=== PATIENT | male | born 1955 | race Caucasian/White ===

== ENCOUNTER 2020-11-04 13:56 | Emergency (ER) | payer MEDICARE, BC ==
[2020-11-04] MEDS ORDERED: HYDROmorphone 1 MG/ML Syringe IVPUSH ONE (14:44)
[2020-11-04] MEDS ORDERED: Metoclopramide 10 MG/2 ML SDV IVPUSH ONE (14:44)
[2020-11-04] MEDS ORDERED: Dextrose 5%-0.9% NaCl 1,000 ML IV SCH (14:45)
--- NOTE | 2020-11-04 14:49 | EDM.PDOC ---
ED HPI GENERAL MEDICAL PROBLEM - General Chief Complaint: Back Pain or Injury Stated Complaint: BACK INJURY Time Seen by Provider: 11/04/20 14:36 Source of Information: Reports: Patient History Limitations: Reports: No Limitations - History of Present Illness INITIAL COMMENTS - FREE TEXT/NARRATIVE: 65-year-old male presents to the ED for evaluation of primarily mid and lower back pain. He states he was hiking out in [place] and decided to jump from a rock to another rock and missed his mynor. He twisted in mid air and landed hard on the rock that he was going to jump on striking the back of his head on the rock. States he was dazed and confused for short period of time but did not lose consciousness. Does have a headache now. No nausea or vomiting. Pain mid cervical spine. Pain lower thoracic spine and upper lumbar spine. Pain posterior lateral lower ribs. Plan CT head , CT cervical spine, CT thoracic spine, CT lumbar spine. CT chest without contrast. IV fluids will be D5 normal saline at open. He will be given Dilaudid 1 mg IV with Reglan 10 mg IV. Onset: Today, Sudden Onset Date: 11/04/20 Onset Time: 12:00 Duration: Hour(s):, Constant, Getting Worse (Mid lower back pain and difficulty taking in a full deep breath.) Location: Reports: Head, Neck, Chest, Back (Lower thoracic spine upper lumbar spine) Quality: Reports: Ache, Throbbing Severity: Moderate Improves with: Reports: Rest Worsens with: Reports: Other (Patient states he is worse in terms of trying to get his breath when he lies flat.) Context: Reports: Trauma (Tripped and fell while jumping from rock to rock while hiking out in [place]. Landed hard on the rock he was going to jump on. Landed hard on his mid back knocking the wind from him.). Denies: Activity, Exercise, Lifting, Sick Contact Associated Symptoms: Reports: No Other Symptoms, Chest Pain, Headaches, Shortness of Breath (Subjective dyspnea). Denies: Confusion, Cough, cough w sputum, Fever/Chills, Loss of Appetite, Malaise, Nausea/Vomiting, Rash, Seizure, Syncope ( as he cannot take a full deep breath without making the pain worse.), Weakness Treatments NEUROSURGICAL NURSE PRACTITIONER: Reports: Other (see below) (He has not taken anything for pain.) Chest Pain Score (Numeric/FACES): 5 - Related Data Allergies Allergy/AdvReac Type Severity Reaction Status Date / Time No Known Allergies Allergy Verified 11/04/20 14:20 Home Meds: Home Meds Cyanocobalamin/Folic Acid [U74-Kfevy Acid 2500-400 Mcg Tb] 1 each PO DAILY 11/04/20 [History] Montelukast [Singulair] 10 mg PO DAILY 11/04/20 [History] Multivitamin [Multivitamins] 1 each PO DAILY 11/04/20 [History] Omeprazole Magnesium [Prilosec Otc] 40 mg PO DAILY 11/04/20 [History] Potassium Chloride 10 meq PO BID 11/04/20 [History] Vitamin B Complex [B Complex] 1 each PO DAILY 11/04/20 [History] Vitamin E 400 unit PO DAILY 11/04/20 [History] amLODIPine Besylate [Norvasc] 1 tab PO DAILY 11/04/20 [History] lisinopriL [Lisinopril] 20 mg PO DAILY 11/04/20 [History] oxyCODONE HCl/Acetaminophen [Percocet 10-325 mg Tablet] 1 each PO Q4H #28 tablet 11/04/20 [Rx] polyethylene glycoL 3350 [MiraLAX] 17 gm PO DAILY #1 container 11/04/20 [Rx] Past Medical History HEENT History: Reports: Impaired Vision Cardiovascular History: Reports: Hypertension Respiratory History: Reports: Other (See Below) Other Respiratory History: 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 Gastrointestinal History: Reports: GERD, PUD Genitourinary History: Reports: None Musculoskeletal History: Reports: Gout Neurological History: Reports: None Psychiatric History: Reports: None Endocrine/Metabolic History: Reports: Obesity/BMI 30+ Hematologic History: Reports: None Immunologic History: Reports: None Oncologic (Cancer) History: Reports: None Dermatologic History: Reports: None - Infectious Disease History Infectious Disease History: Reports: Chicken Pox, Measles, Mumps, Rubella - Past Surgical History HEENT Surgical History: Reports: Adenoidectomy, Oral Surgery, Tonsillectomy GI Surgical History: Reports: Bariatric Procedure (Brissa-en-Y bariatric surgery) Social & Family History - Family History Family Medical History: No Pertinent Family History - Tobacco Use Tobacco Use Status *Q: Former Tobacco User Used Tobacco, but Quit: Yes Month/Year Tobacco Last Used: 03/13/1999 - Caffeine Use Caffeine Use: Reports: Coffee, Soda - Recreational Drug Use Recreational Drug Use: No - Living Situation & Occupation Living situation: Reports: Occupation: Retired ED ROS GENERAL - Review of Systems Review Of Systems: See Below Constitutional: Denies: Fever, Chills, Malaise, Weakness, Fatigue, Weight Loss HEENT: Reports: Glasses, Rhinitis, Sinus Problem Respiratory: Reports: Shortness of Breath. Denies: Wheezing, Pleuritic Chest Pain, Cough, Sputum Cardiovascular: Reports: Blood Pressure Problem, Dyspnea on Exertion. Denies: Chest Pain, Claudication, Edema, Lightheadedness, Orthopnea Endocrine: Reports: Fatigue GI/Abdominal: Reports: Diarrhea (States he has chronic dumping syndrome and has to watch what he eats a since bariatric surgery.), Other (Chronic GERD.) : Reports: Frequency, Other Musculoskeletal: Reports: Back Pain (Nocturia x2.), Joint Pain (Knees hips neck and shoulders at times.) Skin: Reports: No Symptoms Neurological: Reports: No Symptoms Psychiatric: Reports: No Symptoms Hematologic/Lymphatic: Reports: No Symptoms ED EXAM,LOWER BACK PAIN/INJURY - Physical Exam Exam: See Below Exam Limited By: No Limitations General Appearance: Alert, WD/WN, Moderate Distress, Other (Patient prefers to sit up. He states he gets very short of breath if he tries to lie flat. He is alert oriented and able answer all questions appropriately. Captures 36.1 degrees. Heart rate was 93 and sinus. Respiratory is 20 with O2 sats of 97% room air. BP elevated 167 112. Second recordin) Eye Exam: Bilateral Eye: Normal Inspection Throat/Mouth: Normal Inspection, Normal Lips, Normal Oropharynx, Other (No injuries to dentition or tongue.) Head: Other (Patient has a palpable hematoma over the occipital prominence on the right side of his posterior scalp. No open wounds or bleeding) Neck: Normal Inspection, Tender Midline (Patient has tenderness in the midline of his cervical spine from C3-C7. No obvious step deformities. He moves his head fairly well.). No: Lymphadenopathy (L), Lymphadenopathy (R) Respiratory/Chest: Lungs Clear, Normal Breath Sounds, No Accessory Muscle Use, Respiratory Distress (Tachypnea at rest 20/min with retained sats of 97% room air.), Splinting. No: No Respiratory Distress, Decreased Breath Sounds Cardiovascular: Normal Peripheral Pulses, Regular Rate, Rhythm, No Edema, No Gallop, No Murmur, No Rub GI/Abdominal: Normal Bowel Sounds, Soft, Non-Tender, No Organomegaly, No Mass, Pelvis Stable, Other (Surgical scars from previous bariatric surgery. Abdomen is very firm palpation with no obvious organomegaly or masses. Abdominal girth limits ability to palpate solid organs.) Back Exam: Other (Patient has pain lower thoracic spine I believe over thoracic 11 and T12 vertebra and lumbar 1 vertebra.) Extremities: Other (Minimal abrasion posterior right calf. Of note he walked into the emergency room. No obvious injuries to pelvis or hips.) Neurological: Alert, Normal Mood/Affect, Normal Dorsiflexion, Oriented x 3 Psychiatric: Normal Affect, Normal Mood Skin Exam: Warm, Dry, Intact, Normal Color, Other (Superficial abrasion right posterior calf.) Course - Vital Signs Last Recorded V/S: Last Vital Signs Temp 36.1 C 11/04/20 14:27 Pulse 93 11/04/20 14:27 Resp 20 11/04/20 14:27 BP 167/112 H 11/04/20 14:27 Pulse Ox 97 11/04/20 14:27 - Orders/Labs/Meds Meds: Medications Discontinued Medications Generic Name Dose Route Start Last Admin Trade Name Dolly PRN Reason Stop Dose Admin Hydromorphone HCl 1 mg 11/04/20 14:44 11/04/20 15:13 Hydromorphone 1 Mg/Ml Syringe IVPUSH 11/04/20 14:45 1 mg ONETIME ONE Administration Hydromorphone HCl Confirm 11/04/20 15:52 11/04/20 15:54 Hydromorphone 0.5 Mg/0.5 Ml Syringe Administered 11/04/20 15:53 Not Given Dose 0.5 mg .ROUTE .STK-MED ONE Hydromorphone HCl 0.5 mg 11/04/20 15:54 11/04/20 15:54 Hydromorphone 0.5 Mg/0.5 Ml Syringe IVPUSH 11/04/20 15:55 0.5 mg ONETIME ONE Administration Dextrose/Sodium Chloride 1,000 mls @ 999 mls/hr 11/04/20 14:45 11/04/20 15:46 Dextrose 5%-Normal Saline IV 999 mls/hr ASDIRECTED ESTHER Administration Metoclopramide HCl 10 mg 11/04/20 14:44 11/04/20 15:12 Metoclopramide 10 Mg/2 Ml Sdv IVPUSH 11/04/20 14:45 10 mg ONETIME ONE Administration - Radiology Interpretation Free Text/Narrative:: 65-year-old male presents to the ED for evaluation of primarily mid and lower back pain. He states he was hiking out in [place] and was going to jump from a rock to another rock and missed his mynor. He landed headfirst on the rock injuring the occipital aspect of his head with transient confusion and definitely being dazed for period of time subsequently has a headache but no nausea or vomiting. Injury occurred approximately 3 hours before attending the ED. Patient is complaining of mild diffuse midline cervical neck pain as well. His chief complaint is pain in his mid lower back particular over thoracic 11, 12 and lumbar 1 vertebra. He is splinting respirations I believe due to pain in this area and possibly fractured lower ribs. However firm compression of his lateral thorax did not seem to make the pain any worse. Patient will have IV fluids started since he is appreciated his urine to be very dark in color. It will be IV D5 normal saline open. Given Dilaudid 1 mg IV with Reglan 10 mg IV for pain relief. He will have to be able to lie down flat on the CT table for scans to be done. He will require CT head, CT cervical spine, CT thoracic and lumbar spine. He will also have CT chest without contrast. - Re-Assessments/Exams Free Text/Narrative Re-Assessment/Exam: 11/04/20 16:13 CT of the head has been completed without IV contrast. Ventricles along with but basal cisterns and sulci over the convexities are within normal limits for the patient's age. No abnormal parenchymal densities are seen. No evidence of intracranial hemorrhage is seen. No midline shift or mass-effect is identified. Bone window settings were reviewed. Visualized mastoid sinuses and paranasal sinuses show nothing acute. No acute calvarial abnormalities appreciated CT of the cervical spine has been performed without contrast. Vertebral body heights and disc spaces are fairly well-preserved. Diffuse anterior endplate osteophytes are seen. Posterior spurring is noted at the C4-5 level. Ligamentum nuchal calcification is appreciated. No acute fracture or subluxation is noted. Degenerative changes noted as above. CT of the thoracic spine has been completed without contrast. There is widening of the disc interspace at the T7-8 level. Bony density is seen which is felt to represent the inferior endplate of thoracic 7 compatible with fracture in this area. There is degenerative apophyseal changes seen at this level. Fracture is also noted within the anterior spur between the thoracic 7-8 vertebra. Other degenerative apophyseal changes seen throughout the thoracic spine. Scattered disc space narrowing is seen within the thoracic spine. Diffuse endplate osteophytes are seen. No additional fra cture or other abnormalities appreciated. CT of the lumbar spine has been completed. Scattered disc space narrowing is seen throughout the lumbar spine. Diffuse anterior en dplate osteophytes are seen as well as mild diffuse posterior osteophytes. Scattered degenerative apophyseal changes noted. No discrete fracture is seen. No abnormal subluxations are noted. CT of the chest been completed without contrast. Thoracic aorta shows no aneurysm. Mediastinum shows no adenopathy. No axillary adenopathy is seen. Minimal coronary artery calcification appreciated. No pericardial thickening is seen. Previous stomach surgery is present within the upper abdomen. Calcified lung lesion is noted within the right lower chest measuring 1.4 cm. This is believed to be benign. Lungs show no acute parenchymal process. No pleural effusions or pneumothorax are seen. Bone window settings were reviewed. There is widening of the disc space at the T7-8 level with what appears to be a fracture within the inferior endplate as noted on the thoracic spine imaging. Digit degenerative changes also noted within the apophyseal joint at the same level. No additional fractures appreciated within the thoracic spine. 11/04/20 16:19 I discussed the findings of the CT reports with the patient and his whom is now in the room. The plan will be to place him on Percocet tabs 5/325 mg strength likely 2 tablets every 4-6 hours necessary for pain relief as he weighs 300 pounds. He will also be placed on MiraLAX powder 17 g or 1 scoop daily to prevent constipation while on the narcotic pain medication. NSAIDs are relatively contraindicated due to previous bariatric surgery. He will follow up with his primary care provider when he returns back to [place] early next week. Departure - Departure Time of Disposition: 16:20 Disposition: Home, Self-Care 01 Condition: Fair Clinical Impression: Contusion of scalp, initial encounter, Fracture of body of vertebra, Contusion of chest wall with intact skin Fall Qualifiers: Encounter type: initial encounter Qualified Code(s): W19.XXXA - Unspecified fall, initial encounter Sprain of cervical neck Qualifiers: Encounter type: initial encounter Qualified Code(s): S13.9XXA - Sprain of joints and ligaments of unspecified parts of neck, initial encounter Contusion of back wall of thorax Qualifiers: Encounter type: initial encounter Thoracic wall location detail: middle Qualified Code(s): S20.224A - Contusion of middle back wall of thorax, initial encounter - Discharge Information *PRESCRIPTION DRUG MONITORING PROGRAM REVIEWED*: Not Applicable *COPY OF PRESCRIPTION DRUG MONITORING REPORT IN PATIENT MANUELA: Not Applicable Prescriptions: polyethylene glycoL 3350 [MiraLAX] 17 gm PO DAILY #1 container oxyCODONE HCl/Acetaminophen [Percocet 10-325 mg Tablet] 1 each PO Q4H #28 tablet Instructions: Contusion, [id number] Referrals: PCP,Not In Area [Primary Care Provider] - Forms: ED Department Discharge Additional Instructions: Evaluation in the emergency room today in regards to injury sustained from a trip and fall onto a rock services while hiking today. Blunt force trauma to the back of your head with occipital scalp hematoma. CT of the head reveals no intracranial bleeding or mass-effect or skull fracture. Cervical neck tenderness on examination. CT of the cervical spine reveals no fractures and mild degenerative arthritic changes. Expect increase stiffness and soreness in the neck and back to occur over the next [address] scan of the mid back where you are having most of your pain reveals a fracture of the inferior endplate of thoracic 7 vertebra on the anterior component. There is also a fracture through a bridging osteophyte between cervical 7 and cervical 8 vertebra. Osteophyte is due to arthritic degenerative changes. These changes are noticed at multiple levels in the mid thoracic spine and lumbar spine. No fractures are identified in the lumbar spine CT. 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 No fractured ribs were identified. The lungs were clear with no evidence of pneumothorax or injury to the lung i.e. pulmonary contusion. Expect increase stiffness and soreness in many body parts tomorrow and the next day. Suggest use of Percocet tabs 10/325 mg tablets 1 tablet every 4-6 hours necessary for pain relief. May use MiraLAX powder 17 g 1 scoop daily while on the pain medication to prevent constipation from occurring. Follow-up with your personal care provider when you get back to [place] as indicated within the next week. Fracture of the thoracic vertebra is going to take at least 6 weeks to heal. No surgery is necessary to repair this area. Activity as tolerated.
[2020-11-04] MEDS ORDERED: HYDROmorphone 0.5 MG/0.5 ML Syringe ONE (15:52)
[2020-11-04] MEDS ORDERED: HYDROmorphone 0.5 MG/0.5 ML Syringe IVPUSH ONE (15:54)
--- NOTE | 2020-11-04 15:58 | CT ---
Head CT Technique: Multiple axial sections through the brain were obtained. Intravenous contrast was not utilized. Reconstructed coronal and sagittal images were obtained. Comparison: No prior head CT study is available. Findings: Ventricles along with basal cisterns and sulci over the convexities are within normal limits for the patient's age. No abnormal parenchymal densities are seen. No evidence of intracranial hemorrhage is seen. No midline shift or mass-effect is seen. Bone window settings were reviewed. Visualized mastoid sinuses and paranasal sinuses show nothing acute. No acute calvarial abnormality is appreciated. Impression: 1. Nothing acute is seen on noncontrast head CT study. Diagnostic code #1
--- NOTE | 2020-11-04 16:01 | CT ---
CT chest Technique: Multiple axial sections were obtained from above the lung apices inferiorly through the lung bases. Intravenous contrast was not utilized. Reconstructed coronal and sagittal images were obtained. Comparison: No prior chest imaging is available. Findings: Thoracic aorta shows no aneurysm. Mediastinum shows no adenopathy. No axillary adenopathy is seen. Minimal coronary artery calcification is seen. No pericardial thickening is seen. Previous stomach surgery is present within the upper abdomen. Calcified lung lesion is noted within the right lower chest measuring 1.4 cm. This is believed to be benign. Lungs show no acute parenchymal process. No pleural effusions or pneumothorax are seen. Bone window settings were reviewed. There is widening of the disc space at T7-8 with what appears to be a fracture within the inferior endplate. Degenerative change is also noted within the apophyseal joint within this level. No additional fracture is appreciated within the thoracic spine. Impression: 1. Fracture within the inferior endplate of T7 with widening of the T7-8 disc interspace. No additional fracture line is seen. 2. No additional acute bone abnormality is appreciated. 3. Other incidental findings as noted above. Diagnostic code #3
--- NOTE | 2020-11-04 16:02 | CT ---
CT cervical spine Technique: Multiple axial images were obtained from above C1 inferiorly to the mid T2 level. Reconstructed coronal and sagittal images were obtained. Comparison: No prior cervical spine imaging is available. Findings: Vertebral body heights and disc spaces are fairly well preserved. Diffuse anterior endplate osteophytes are seen. Posterior spurring is noted at C4-5. Ligamentum nuchal calcification is seen. No acute fracture or subluxation is noted. Impression: 1. Degenerative change as noted above. Ligamentum nuchal calcification is noted. 2. No acute fracture or subluxation is appreciated. Diagnostic code #2
--- NOTE | 2020-11-04 16:02 | CT ---
CT lumbar spine Technique: Multiple axial sections were obtained through the lumbar spine. Reconstructed coronal and sagittal images were obtained. Comparison: No prior lumbar spine imaging is available. Findings: Scattered disc space narrowing is seen throughout the lumbar spine. Diffuse anterior endplate osteophytes are seen as well as mild diffuse posterior osteophytes. Scattered degenerative apophyseal change is noted. No discrete fracture is seen. No abnormal subluxation is noted. Impression: 1. Degenerative change as noted above. 2. No acute fracture or subluxation is seen. Diagnostic code #2
--- NOTE | 2020-11-04 16:08 | CT ---
CT thoracic spine Technique: Multiple axial sections through the thoracic spine were obtained. Reconstructed coronal and sagittal images were obtained. Comparison: No prior thoracic spine imaging is available. Findings: There is widening of the disc interspace at T7-8. Bony density is seen which is felt to represent the inferior endplate of T7 compatible with fracture. There is degenerative apophyseal change seen at this level. Fracture is also noted within the anterior spur between T7-8. Other degenerative apophyseal change is seen throughout the thoracic spine. Scattered disc space narrowing is seen within the thoracic spine. Diffuse endplate osteophytes are noted. No additional fracture or other abnormality is appreciated. Impression: 1. Fracture within the inferior endplate of T7 and associated anterior osteophyte causing widening of the disc space at T7-8. No posterior fracture line is seen. 2. Other degenerative change as noted above. Diagnostic code #3
== END 2020-11-04 16:43 | disposition home or self-care (01) ==
LOC: JD.ED 13:56
DX: S22.068A Other fracture of T7-T8 thoracic vertebra, initial encounter for closed fracture (principal); S13.4XXA Sprain of ligaments of cervical spine, initial encounter; S20.224A Contusion of middle back wall of thorax, initial encounter; S00.03XA Contusion of scalp, initial encounter; K21.9 Gastro-esophageal reflux disease without esophagitis; I10 Essential (primary) hypertension; E66.9 Obesity, unspecified; Z79.899 Other long term (current) drug therapy; Z68.30 Body mass index [BMI] 30.0-30.9, adult; Z87.891 Personal history of nicotine dependence; W22.09XA Striking against other stationary object, initial encounter; X50.1XXA Overexertion from prolonged static or awkward postures, initial encounter
CPT/HCPCS: 70450; 71250; 72125; 72128; 72131; 96374; 96375; 96376; 99284; J1170; J2765; J7042